=== PATIENT | male | born 1980 | race American Indian/Alaskan Native ===

== ENCOUNTER 2020-06-24 20:42 | Emergency (ER) | payer SELFPAY ==
--- NOTE | 2020-06-24 23:10 | Emergency Department Report ---
ED Psych HPI - General Chief Complaint: Urogenital-Male Stated Complaint: PAIN IN GROIN Time Seen by Provider: 06/24/20 21:25 Source: patient Mode of arrival: Ambulatory Limitations: No Limitations - History of Present Illness Initial Comments: 40-year-old male with a past medical history of depression presents to the hospital complaining of psychosis and suicidal ideation. Patient states he is a and has guns in the home. For the last 2 weeks he has been hearing voices. He is suicidal and does not not feel safe to be at home alone. Patient states he had 1 previous episode of psychosis due to depression and has not been on psychiatric meds for "a long time". Initial complaint of right groin pain x2 weeks. Patient states is "not that bad". He denies swelling, dysuria, or discharge. Pt admits to marijuana use - Related Data Home Medications Medication Instructions Recorded Confirmed Last Taken No Known Home Medications [No 06/25/20 06/25/20 Unknown Reported Home Medications] Allergies Allergy/AdvReac Type Severity Reaction Status Date / Time No Known Allergies Allergy Unverified 06/24/20 21:00 ED Review of Systems ROS: Stated complaint: PAIN IN GROIN Other details as noted in HPI Comment: All other systems reviewed and negative ED Past Medical Hx - Past Medical History Previous Medical History?: No - Surgical History Past Surgical History?: No - Social History Smoking Status: Current Every Day Smoker Substance Use Type: Marijuana - Medications Home Medications: Home Medications Medication Instructions Recorded Confirmed Last Taken Type No Known Home Medications [No 06/25/20 06/25/20 Unknown History Reported Home Medications] ED Physical Exam - General Limitations: No Limitations - Other Other exam information: General: No acute distress Head: Atraumatic Eyes: normal appearance ENT: Moist mucous membranes Neck: Normal appearance, no midline tenderness Chest: Clear to auscultation bilaterally CV: Regular rate and rhythm Abdomen: Soft, normal bowel sounds, nontender, nondistended, no rebound or guarding. Bilateral inguinal areas examined without signs of hernia or lymphadenopathy Back: Normal inspection Extremity: Normal inspection, full range of motion Neuro: Alert O x 3, no facial asymmetry, speech clear, no gross motor sensory deficit Psych: Appropriate behavior, cooperative Skin: No rash ED Course Vital Signs 06/24/20 06/25/20 06/25/20 20:54 02:05 12:05 Temperature 98.2 F 98.8 F 97.8 F Pulse Rate 77 76 64 Respiratory 16 18 18 Rate Blood Pressure 116/68 Blood Pressure 134/80 119/64 [Left] O2 Sat by Pulse 99 98 100 Oximetry 06/25/20 20:00 Temperature 98.3 F Pulse Rate 60 Respiratory 16 Rate Blood Pressure Blood Pressure 101/60 [Left] O2 Sat by Pulse 99 Oximetry - Reevaluation(s) Reevaluation #1: 06/25/20 00:50 pt's vitals stable. labs and physical exam unremarkable. UA/UDS is pending at this time since pt has not yet provided a sample. results should not hinder medical clearance but will need to be followed up to r/o infection requiring abx treatment. Overnight MD Aburto to f/u ua results if he produces a urine during his shift. 06/25/20 22:01 urine reviewed and normal with exception of THC on uds ED Medical Decision Making - Lab Data Result diagrams: 06/24/20 23:05 06/24/20 23:05 Lab Results 06/24/20 06/24/20 06/24/20 Range/Units 23:05 23:05 23:05 WBC 9.2 (4.5-11.0) K/mm3 RBC 4.26 (3.65-5.03) M/mm3 Hgb 13.7 (11.8-15.2) gm/dl Hct 40.7 (35.5-45.6) % MCV 96 H (84-94) fl MCH 32 (28-32) pg MCHC 34 (32-34) % RDW 13.7 (13.2-15.2) % Plt Count 173 (140-440) K/mm3 Lymph % (Auto) 32.4 (13.4-35.0) % [place] % (Auto) 4.8 (0.0-7.3) % Eos % (Auto) 1.5 (0.0-4.3) % Baso % (Auto) 0.6 (0.0-1.8) % Lymph # (Auto) 3.0 (1.2-5.4) K/mm3 [place] # (Auto) 0.4 (0.0-0.8) K/mm3 Eos # (Auto) 0.1 (0.0-0.4) K/mm3 Baso # (Auto) 0.1 (0.0-0.1) K/mm3 Seg Neutrophils % 60.7 (40.0-70.0) % Seg Neutrophils # 5.6 (1.8-7.7) K/mm3 Sodium 140 (137-145) mmol/L Potassium 4.0 (3.6-5.0) mmol/L Chloride 100.1 (98-107) mmol/L Carbon Dioxide 26 (22-30) mmol/L Anion Gap 18 mmol/L BUN 8 L (9-20) mg/dL Creatinine 1.2 (0.8-1.3) mg/dL Estimated GFR > 60 ml/min BUN/Creatinine Ratio 7 % Glucose 106 H (75-100) mg/dL Calcium 9.2 (8.4-10.2) mg/dL Urine Color (Yellow) Urine Turbidity (Clear) Urine pH (5.0-7.0) Ur Specific [place] (1.003-1.030) Urine Protein (Negative) mg/dL Urine Glucose (UA) (Negative) mg/dL Urine Ketones (Negative) mg/dL Urine Blood (Negative) Urine Nitrite (Negative) Urine Bilirubin (Negative) Urine Urobilinogen (<2.0) mg/dL Ur Leukocyte Esterase (Negative) Urine WBC (Auto) (0.0-6.0) /HPF Urine RBC (Auto) (0.0-6.0) /HPF U Epithel Cells (Auto) (0-13.0) /HPF Urine Mucus /HPF Salicylates < 0.3 L (2.8-20.0) mg/dL Urine Opiates Screen Urine Methadone Screen Acetaminophen (10.0-30.0) ug/mL Ur Barbiturates Screen Ur Phencyclidine Scrn Ur Amphetamines Screen U Benzodiazepines Scrn Urine Cocaine Screen U Marijuana (THC) Screen Drugs of Abuse Note Plasma/Serum Alcohol (0-0.07) % 06/24/20 06/24/20 06/24/20 Range/Units 23:05 23:05 Unknown WBC (4.5-11.0) K/mm3 RBC (3.65-5.03) M/mm3 Hgb (11.8-15.2) gm/dl Hct (35.5-45.6) % MCV (84-94) fl MCH (28-32) pg MCHC (32-34) % RDW (13.2-15.2) % Plt Count (140-440) K/mm3 Lymph % (Auto) (13.4-35.0) % [place] % (Auto) (0.0-7.3) % Eos % (Auto) (0.0-4.3) % Baso % (Auto) (0.0-1.8) % Lymph # (Auto) (1.2-5.4) K/mm3 [place] # (Auto) (0.0-0.8) K/mm3 Eos # (Auto) (0.0-0.4) K/mm3 Baso # (Auto) (0.0-0.1) K/mm3 Seg Neutrophils % (40.0-70.0) % Seg Neutrophils # (1.8-7.7) K/mm3 Sodium (137-145) mmol/L Potassium (3.6-5.0) mmol/L Chloride (98-107) mmol/L Carbon Dioxide (22-30) mmol/L Anion Gap mmol/L BUN (9-20) mg/dL Creatinine (0.8-1.3) mg/dL Estimated GFR ml/min BUN/Creatinine Ratio % Glucose (75-100) mg/dL Calcium (8.4-10.2) mg/dL Urine Color Yellow (Yellow) Urine Turbidity Clear (Clear) Urine pH 5.0 (5.0-7.0) Ur Specific [place] 1.018 (1.003-1.030) Urine Protein <15 mg/dl (Negative) mg/dL Urine Glucose (UA) Neg (Negative) mg/dL Urine Ketones Neg (Negative) mg/dL Urine Blood Neg (Negative) Urine Nitrite Neg (Negative) Urine Bilirubin Neg (Negative) Urine Urobilinogen 2.0 (<2.0) mg/dL Ur Leukocyte Esterase Neg (Negative) Urine WBC (Auto) < 1.0 (0.0-6.0) /HPF Urine RBC (Auto) < 1.0 (0.0-6.0) /HPF U Epithel Cells (Auto) 1.0 (0-13.0) /HPF Urine Mucus 1+ /HPF Salicylates (2.8-20.0) mg/dL Urine Opiates Screen Urine Methadone Screen Acetaminophen 5.0 L (10.0-30.0) ug/mL Ur Barbiturates Screen Ur Phencyclidine Scrn Ur Amphetamines Screen U Benzodiazepines Scrn Urine Cocaine Screen U Marijuana (THC) Screen Drugs of Abuse Note Plasma/Serum Alcohol < 0.01 (0-0.07) % 06/24/20 Range/Units Unknown WBC (4.5-11.0) K/mm3 RBC (3.65-5.03) M/mm3 Hgb (11.8-15.2) gm/dl Hct (35.5-45.6) % MCV (84-94) fl MCH (28-32) pg MCHC (32-34) % RDW (13.2-15.2) % Plt Count (140-440) K/mm3 Lymph % (Auto) (13.4-35.0) % [place] % (Auto) (0.0-7.3) % Eos % (Auto) (0.0-4.3) % Baso % (Auto) (0.0-1.8) % Lymph # (Auto) (1.2-5.4) K/mm3 [place] # (Auto) (0.0-0.8) K/mm3 Eos # (Auto) (0.0-0.4) K/mm3 Baso # (Auto) (0.0-0.1) K/mm3 Seg Neutrophils % (40.0-70.0) % Seg Neutrophils # (1.8-7.7) K/mm3 Sodium (137-145) mmol/L Potassium (3.6-5.0) mmol/L Chloride (98-107) mmol/L Carbon Dioxide (22-30) mmol/L Anion Gap mmol/L BUN (9-20) mg/dL Creatinine (0.8-1.3) mg/dL Estimated GFR ml/min BUN/Creatinine Ratio % Glucose (75-100) mg/dL Calcium (8.4-10.2) mg/dL Urine Color (Yellow) Urine Turbidity (Clear) Urine pH (5.0-7.0) Ur Specific [place] (1.003-1.030) Urine Protein (Negative) mg/dL Urine Glucose (UA) (Negative) mg/dL Urine Ketones (Negative) mg/dL Urine Blood (Negative) Urine Nitrite (Negative) Urine Bilirubin (Negative) Urine Urobilinogen (<2.0) mg/dL Ur Leukocyte Esterase (Negative) Urine WBC (Auto) (0.0-6.0) /HPF Urine RBC (Auto) (0.0-6.0) /HPF U Epithel Cells (Auto) (0-13.0) /HPF Urine Mucus /HPF Salicylates (2.8-20.0) mg/dL Urine Opiates Screen Presumptive negative Urine Methadone Screen Presumptive negative Acetaminophen (10.0-30.0) ug/mL Ur Barbiturates Screen Presumptive negative Ur Phencyclidine Scrn Presumptive negative Ur Amphetamines Screen Presumptive negative U Benzodiazepines Scrn Presumptive negative Urine Cocaine Screen Presumptive negative U Marijuana (THC) Screen Presumptive positive Drugs of Abuse Note Disclamer Plasma/Serum Alcohol (0-0.07) % Critical care attestation.: If time is entered above; I have spent that time in minutes in the direct care of this critically ill patient, excluding procedure time. ED Disposition Clinical Impression: Psychosis, Suicidal ideation, Medical clearance for psychiatric admission Disposition: [id number]/TX-65 PSY HOSP/PSY UNIT Is pt being admited?: No Condition: Stable Referrals: NERIS MOORE MD [Primary Care Provider] - 3-5 Days
[2020-06-24 23:25] LABS: Basophils # (Auto) 0.1 K/mm3 (0.0-0.1); Basophils % (Auto) 0.6 % (0.0-1.8); Eosinophils # (Auto) 0.1 K/mm3 (0.0-0.4); Eosinophils % (Auto) 1.5 % (0.0-4.3); Hematocrit 40.7 % (35.5-45.6); Hemoglobin 13.7 gm/dl (11.8-15.2); Lymphocytes % (Auto) 32.4 % (13.4-35.0); Mean Corpuscular HGB Conc 34 % (32-34); Mean Corpuscular Volume 96 fl (84-94); Monocytes # (Auto) 0.4 K/mm3 (0.0-0.8); Monocytes % (Auto) 4.8 % (0.0-7.3); Platelet Count 173 K/mm3 (140-440); Red Blood Count 4.26 M/mm3 (3.65-5.03); Red Cell Distribution Width 13.7 % (13.2-15.2)
[2020-06-24 23:43] LABS: BUN/Creatinine Ratio 7; Blood Urea Nitrogen 8 mg/dL (9-20); Calcium 9.2 mg/dL (8.4-10.2); Hemolysis Index 9
[2020-06-25 02:35] LABS: Bilirubin,Urine NEG (Negative); Blood,Urine NEG (Negative); Color,Urine Yellow (Yellow); Mucus,Urine 1+ /HPF; Protein,Urine <15 mg/dL mg/dL (Negative); RBC,Urine < 1.0 /HPF (0.0-6.0); WBC,Urine < 1.0 /HPF (0.0-6.0)
[2020-06-25 02:44] LABS: Amphetamine Screen,Urine PRESUMPTIVE NEGATIVE; Benzodiazepines Screen,Urine PRESUMPTIVE NEGATIVE; Cannabinoid Screen,Urine PRESUMPTIVE POSITIVE; Cocaine Screen,Urine PRESUMPTIVE NEGATIVE; Methadone Screen,Urine PRESUMPTIVE NEGATIVE; Opiate Screen,Urine PRESUMPTIVE NEGATIVE
[2020-06-26] MEDS ORDERED: SODIUM CHLORIDE IRRI 500 ML 500 ML IR ONE (08:25)
--- NOTE | 2020-06-26 09:59 | Consultation ---
History of Present Illness - Reason for Consult Consult date: 06/26/20 Reason for consult: Hallucinations, SI - History of Present Psychiatric Illness Francisco Romero is a 40y/o male patient who presented to the ER for auditory hallucinations and suicidal ideation. During my interview with the patient he is lying down. He is a/o x 3. He has a quiet disposition. He makes fair eye contact. He is calm and cooperative. The patient states he came to the ER for "hearing voices." He says "it was a lot of muffled stuff and it sounded like some stuff from the ." When asked about hallucinations at present, the patient says "no, not hearing them now." When asked about SI/HI, he initially states "not suicidal at this very second." When asking the patient how was his mood he says, "just depressed and tired." He then says, "feels like I wanna ." The patient says he "has guns at home and is afraid." He denies suicide attempts in the past, and says he was admitted for psych related conditions "once." The patient says he was diagnosed with "depression" in the past. He says he's not on any meds and remembers only being on "xanax a long time ago." He denies illicit drug use, except TCH. He says he drinks "two 24 oz daily." He denies any withdrawal symptoms at present. PAST PSYCHIATRIC HISTORY: Diagnoses: Depression Suicide attempts or Self-harm behavior: Denies Prior psychiatric hospitalizations: Once Substance Abuse history: THC Previous psychiatric medications tried: xanax Outpatient treatment: Denies PAST MEDICAL HISTORY: Family Psychiatric History: None reported or documented SOCIAL HISTORY Marital Status: Single Living Arrangements: Alone Employment Status: , employed Access to guns/weapons: Yes Education: high school graduate History of Abuse: none reported Legal History: Denies REVIEW OF SYSTEMS Constitutional: Negative for weight loss ENT: Negative for stridor Respiratory: Negative for cough or hemoptysis All other systems reviewed and are negative MENTAL STATUS EXAMINATION General Appearance: Dressed appropriately Behavior: Calm and cooperative, fair eye contact. Quiet Mood: "depressed and tired" Affect and affective range: Congruent with stated mood Thought Process: goal directed Speech: low tone Suicidal Ideation: Yes Homicidal Ideation: Denies Hallucinations: Auditory, but not at present Delusions: None elicited Insight and Judgment: Limited Memory/Cognition: Limited Attention: Normal Orientation: Alert, oriented x 3 Assessment Major Depressive Disorder, Severe w/Psychotic Features PLAN Assess CIWA Start Vistaril 25mg q6h prn anxiety Start Risperidone 0.5mg po BID Start Trazodone 50mg po daily Start Zoloft 25mg po daily Sitter: Defer to primary Medical: Per primary Disposition: recommend acute inpatient psychiatric treatment Will follow. Thank you for this consult Medications and Allergies Allergies Allergy/AdvReac Type Severity Reaction Status Date / Time No Known Allergies Allergy Unverified 06/24/20 21:00 Home Medications Medication Instructions Recorded Confirmed Last Taken Type No Known Home Medications [No 06/25/20 06/25/20 Unknown History Reported Home Medications] Mental Status Exam - Vital signs Last Vital Signs Temp 97.8 F 06/26/20 02:15 Pulse 62 06/26/20 02:15 Resp 16 06/26/20 02:15 BP 97/59 06/26/20 02:15 Pulse Ox 99 06/26/20 02:15 Results Result Diagrams: 06/24/20 23:05 06/24/20 23:05 All other labs normal.
[2020-06-26] MEDS ORDERED: hydrOXYzine PAMOATE 25 MG CAP PO PRN (10:03)
[2020-06-26] MEDS: risperiDONE 0.25 MG TAB PO SCH ×2 (11:19→21:58)
[2020-06-26] MEDS: SERTRALINE 25 MG TAB PO SCH (11:19)
[2020-06-26] MEDS ORDERED: traZODone 50 MG TAB PO SCH (22:00)
--- NOTE | 2020-06-27 08:06 | Progress Note ---
Subjective - Reason for Consult Consult date: 06/27/20 Reason for consult: depression, suicide - Chief Complaint Chief complaint: During my interview with the patient this morning, he is lying in bed awake. He is a/o x 3. The patient verbalizes being "depressed." He denies SI/HI at the moment, but states "he just doesn't really care." The patient verbalizes feeling "paranoid" and "hearing loud voices over me that make me feel scared." REVIEW OF SYSTEMS Constitutional: Negative for weight loss ENT: Negative for stridor Respiratory: Negative for cough or hemoptysis All other systems reviewed and are negative MENTAL STATUS EXAMINATION General Appearance: Dressed appropriately Behavior: Calm and cooperative, fair eye contact. Quiet Mood: "depressed" Affect and affective range: Congruent with stated mood Thought Process: goal directed Speech: low tone Suicidal Ideation: Passive Homicidal Ideation: Denies Hallucinations: Auditory Delusions: None elicited Insight and Judgment: Limited Memory/Cognition: Limited Attention: Normal Orientation: Alert, oriented x 3 Assessment Major Depressive Disorder, Severe w/Psychotic Features PLAN Assess CIWA Increased Risperidone 0.5mg po BID Sitter: Defer to primary Medical: Per primary Disposition: recommend acute inpatient psychiatric treatment Will follow. Thank you for this consult Mental Status Exam - Vital signs Last Vital Signs Temp 98.0 F 06/27/20 07:41 Pulse 69 06/27/20 07:41 Resp 20 06/27/20 07:41 BP 108/69 06/27/20 07:41 Pulse Ox 98 06/27/20 07:41
[2020-06-27] MEDS ORDERED: risperiDONE 0.25 MG TAB PO SCH (10:00)
[2020-06-27] MEDS: SERTRALINE 25 MG TAB PO SCH (11:42)
[2020-06-27 14:00] VITALS: BP 114/69
== END 2020-06-27 18:09 ==
LOC: EEVIPCON 20:42 → ED 20:42
DX: F23 Brief psychotic disorder (principal); Z04.6 Encounter for general psychiatric examination, requested by authority; F17.200 Nicotine dependence, unspecified, uncomplicated; F12.10 Cannabis abuse, uncomplicated
CPT/HCPCS: 36415; 80048; 80307; 80320; 81001; 85025; G0480; Q0177